=== PATIENT | female | born 1955 | race Caucasian/White ===

== ENCOUNTER 2018-09-22 08:15 | Inpatient (IN) | payer OTHER, SELFPAY ==
[2018-09-08 13:41] VITALS: BMI 34.9
[2018-09-22] VITALS (14 sets, daily range): BP systolic 107–151; BP diastolic 42–85; PULSE 56–69; RESP 11–18; TEMP 36–37.2; O2SAT 95–100; BMI 34.9
--- NOTE | 2018-09-22 | DI.RAD.S_ITS ---
PROCEDURE: XR HIP W PEL IF DONE LT 2V INDICATIONS: POST OP HIP TECHNIQUE: AP pelvis and lateral view of the left hip acquired. COMPARISON: None. FINDINGS: Bones: Patient is status post left hip arthroplasty, with hardware components in expected positions. The hip joint appears congruent. The visualized bony structures appear intact. Soft tissues: Overlying postoperative changes are noted. No suspicious soft tissue densities. IMPRESSION: Post left total hip arthroplasty changes with anatomic left hip alignment. Dictated by: Guillermo Tobar M.D. on 09/22/2018 at 15:06 Approved by: Guillermo Tobar M.D. on 09/22/2018 at 15:06
--- NOTE | 2018-09-22 06:00 | DI.RAD.S_ITS ---
PROCEDURE: XR PELVIS 1-2V INDICATIONS: post op TECHNIQUE: 1 view of the lower pelvis acquired. COMPARISON: None. FINDINGS: Bones: Patient is status post left hip arthroplasty, with hardware components in expected positions. The hip joint appears congruent. The visualized bony structures appear intact. Soft tissues: Overlying postoperative changes are noted. No suspicious soft tissue densities. IMPRESSION: Post left total hip arthroplasty changes with anatomic left hip alignment. Dictated by: Guillermo Tobar M.D. on 09/22/2018 at 13:03 Approved by: Guillermo Tobar M.D. on 09/22/2018 at 13:04
[2018-09-22] MEDS: PREGABALIN 75 MG CAPSULE PO (08:49)
[2018-09-22] MEDS: ACETAMINOPHEN 325 MG TABLET 975 MG PO ×3 (08:49→20:32)
[2018-09-22] MEDS: CELECOXIB 200 MG CAPSULE PO (08:49)
[2018-09-22] MEDS: LACTATED RINGERS 1,000 ML 42 ML IV ×2 (08:51→12:27)
[2018-09-22] MEDS: VANCOMYCIN 1,000 MG/200 ML FROZ.PIGGY 200 MG IV (09:22)
--- NOTE | 2018-09-22 09:41 | PM.PREOP ---
Pre-operative Note Interval Note History & Physical reviewed/Exam performed by Physician: Yes Changes to H&P: No
--- NOTE | 2018-09-22 09:42 | P.OP_ITS ---
Operative Date/Time/Diagnoses Date of procedure: 09/22/18 Time of procedure: 10:42 Pre-op diagnosis: Severe left hip osteoarthritis Post-op diagnosis: same Procedure & Clinicians Procedure: Left total hip arthroplasty Same procedure as scheduled: Yes Indications: The patient has had progressively worsening left hip pain with radiographic changes consistent with arthritis. Non-operative management has failed and the patient has requested total hip replacement. The risks, benefits and alternatives to surgery were discussed with the patient prior to proceeding. Risks discussed included, but were not limited to, failure to relieve pain, leg length discrepancy, dislocation, stiffness, infection, nerve damage, deep venous thrombosis, pulmonary embolism, stroke, coma, heart attack, permanent paralysis and , as well as the potential need for eventual revision of the prosthetic. Surgeon: Yesi Chaney Email Production Consultant: Mimi Neff Anesthesia Type: General and Spinal Operative Notes Findings: Severe left hip osteoarthritis, adequate stability, very soft bone Closure Type: primary Specimen(s): none sent Prosthetic devices, grafts, tissues, transplants, or devices: [employer] R3 52 mm cup, 2 20 mm 6.5 mm acetabular screws, neutral poly liner, 36 x 52, 36+ 4 Oxinium head, size 5 standard offset anthology femoral prosthesis Applied: drain(s) Estimated Blood Loss (mL): 250 Blood products transfused: none Procedure in detail: The patient was seen in the pre-operative area, where the patient identified the left hip as the operative site and this was marked with my initials. The patient received pre-operative antibiotics and was taken to the operating room and placed on the operative table in the right lateral decubitus position after satisfactory anesthesia. A exceptional children teacher out was performed. The left leg was prepared from the ankle to the iliac crest with ChloroPrep in the usual fashion and draped through sterile drapes. The hip was approached through an approximately 20 cm incision centered over the greater trochanter and curving gently posteriorly as it went proximally. This was carried sharply to the fascia arslan, which was divided and retracted with a self retaining retractor. The trochanteric bursa was excised with care being taken to avoid the sciatic nerve, which was identified and protected throughout the case. The short external rotators were incised and the capsulomuscular flap was raised and tagged for later repair. The hip was dislocated, and a femoral neck osteotomy performed approximately 15 mm above the lesser trochanter. Retractors were placed around the femur. The canal was opened with a box cutting osteotome, followed by a T handled reamer and a lateralizing reamer. The chili pepper broach was then used, followed by sequential broaching until there was good stability of the broach in the femur. Retractors were placed to expose the acetabulum. The labrum and central soft tissues were removed. Reaming was performed initially going up in 2 mm increments, then 1 mm increments until good bite was obtained with an odd sized reamer. She had a very soft acetabulum and I did have some slight comminution of the anterior rim. There was also a fairly large cyst in the superior dome of the acetabulum and I used acetabular reaming in some of the bone from the femoral head for bone grafting. The cup 1 mm larger than the last reamer was then inserted using the appropriate anteversion guides. She had very soft bone and a fairly significant cyst in the superior aspect of the acetabulum and I opted to fix the cup with 2 screws. Screws were inserted and there was reasonable bite in both screws. A trial neutral liner was placed. The broach was placed in the canal. A trial head and neck were then placed and the hip relocated and checked for leg length and stability. An intraoperative film confirmed the component position and no evidence of fracture. The patient was stable in the position of sleep, of squatting, and could be put through a range of motion with 45 degrees internal rotation without dislocation. At 90 degrees flexion, internal rotation to 70 was possible before dislocation. This was felt to be satisfactory and the appropriate components were opened, and the trials were removed. The acetabular liner was impacted into position. The final stem was then impacted into the prepared femoral canal. A brief Betadine soak was performed while trialing with head options. The hip was meticulously irrigated with normal saline. Finally the femoral head was impacted onto the stem. The acetabulum was cleared of all material and the hip relocated one final time. The capsulomuscular flap was then repaired to the greater trochanter though an awl hole using the tag sutures. The short external rotators were repaired with a nonabsorbable suture. A deep drain was placed and brought out anteriorly. The fascia arslan was closed with Vicryl. The subcutaneous layer was closed with barbed sutures and SteriStrips. An Aquacel Ag dressing was applied and the patient was taken to recovery having tolerated the procedure well. Complications: none Condition: stable Disposition: Acute Care Plan for aftercare: The patient will be maintained on a standard total hip replacement protocol with weight bearing as tolerated and posterior hip precautions. The patient will receive Aspirin and sequential compression devices for DVT prophylaxis. The patient will be discharged home when safe for the home environment.
--- NOTE | 2018-09-22 09:48 | PC.NURSE ---
Day shift: Pt not on AC unit at this time.
[2018-09-22] MEDS: CEFAZOLIN 2 GM/100 ML FROZ.PIGGY IV ×2 (10:27→17:56)
[2018-09-22] MEDS: TRANEXAMIC ACID 1,000 MG VIAL 1000 MG INJ ×2 (10:45→13:09)
--- NOTE | 2018-09-22 11:10 | SUR.OPER ---
Lateral on padded OR bed. Gel axillary roll. Arms secured on padded armboard with pillow supporting top arm. Padded hip positioner braces x4 - anterior and posterior chest and pelvis. Additional gel pad used anterior pelvis. Gel pad under bottom leg from knee to foot and secured with tape over sheet.
[2018-09-22] MEDS: BUPIVACAINE 0.25% W/ EPI (PF) 10 ML VIAL 60 ML INJ (11:19)
[2018-09-22] MEDS: BUPIVACAINE LIPOSOME 266 MG/20 ML VIAL INJ (11:20)
[2018-09-22] MEDS: POVIDONE-IODINE 15 ML, SODIUM CHLORIDE 0.9% 250 ML TOP (11:21)
[2018-09-22] MEDS: EPINEPHrine 1 MG/ML AMPUL IRR (11:26)
--- NOTE | 2018-09-22 14:39 | PC.NURSE ---
Day shift: Pt on AC unit at approx 1435. Oriented to room and call light. VS WNL. HR 59. Pt is A&Ox3. Aquacel is CDI. Hemavac is patent and depressed. PPP and sensation not returned below the left knee. CMS intact RLE. HFR for now. Bed in low position.
--- NOTE | 2018-09-22 14:43 | SUR.PHASEI ---
1428 A&O, transferred to 220, clothing bag and cane taken to the room. Tolerating ice chips well, denies pain. Hemovac compressed w/red drainage, dressing remains CDI. SCDs on. Continuous pulse ox applied. Stable.
[2018-09-22] MEDS: LACTATED RINGERS 1,000 ML 125 ML IV ×2 (14:52→23:16)
--- NOTE | 2018-09-22 17:18 | PC.NURSE ---
Addendum entered by Susanna Waters R.N. 09/22/18 22:25: Had nausea & lightheadedness when transfered to recliner by Physical Therapist earlier. Had 2 bouts of emesis, 40 ml emesis then larger 300 mls. Zofran SL given at that time. Since then sat up in recliner for 3 hours, denies pain to LLE or further nausea/emesis tonight. At 2100: reporting urge to void & assisted into bathroom with use of walker/gait belt, post-op hip precautions reinforced. She voided 200 ml clear delores urine, then ambulated with assist back to bed. When she sat on bed she started having dry heaves, vomiting 30 ml in emesis bag. IV Reglan given. After 10 minutes she denied further nausea saying I think it is the movement. I observed her LLE to be shaky while sitting at side of bed. Assisted her into bed, 2100 PO meds given along with crackers & fresh ice water. VS are stable tonight, she denies other needs/concerns. Original Note: Post-op notes: Luke awake, Ox3, denies numbness or tingling to extremities. Denies any pain. Good mvmt of LE's, bilateral SCD's are on. Left hip aquacel drsg is CDI, hemovac compressed & active with small amt sero-sang in tubing. Her vitals are stable. Denies nausea, tolerating crackers & water, sitting in bed eating meal. PT in room to work with patient now.
--- NOTE | 2018-09-22 17:40 | PT.IIE ---
Current Diagnoses Unilateral primary osteoarthritis, left hip (09/22/18) Surgery Performed Operation Date: 09/22/18 10:15 Actual Procedures p Total Hip Arthroplasty(Left) - Yesi Chaney MD Surgical History (Last Updated 09/08/18 @ 14:15 by Teresita Cruz, RN) History of carpal tunnel release of both wrists (Acute ~2010) History of tonsillectomy and adenoidectomy (Acute) Hx of appendectomy (Acute ~1990) Hx of bariatric surgery (Acute ~11/2012) Hx of cholecystectomy (Acute ~1992) Status post bilateral cataract extraction (Acute ~2015) Medical History (Last Updated 09/08/18 @ 14:15 by Teresita Cruz RN) Arthritis (Acute) H/O: hysterectomy (Acute ~03/1991) HTN (hypertension) (Acute) Herpes simplex (Acute) Tibia/fibula fracture (Acute ~1994) Lynch teeth removed (Acute ~1978) Physical Therapy Inpatient Evaluation/Re-Eval M1 PT/OT-IP Prior Functional Status Start: 09/22/18 17:37 Freq: NEEDED Status: Active Protocol: Document 09/22/18 17:37 EA (Rec: 09/22/18 17:42 EA [id number]) Medical Review Prior Functional Status Medical History Reviewed Yes Diet/Fluid Consistency Regular Communication Normal Mobility and Gait Indep with no used of straight cane. Activities of Daily Living and IADL's Indep Prior Functional Level (Other details) Work in [employer] with active lifestyle. Social History Household Members none Living Arrangements House Number of Floors (Floors) One Floor Number of Stairs To Enter/Railing? 2 steps to get in with railing Home Environment Tub/Shower Home Equipment Front Wheel Walker Straight Cane Raised Toilet Seat w/Armrests Employment Status Customer Assistance Representative Employed M2 PT-IP Current Condition Start: 09/22/18 17:37 Freq: NEEDED Status: Active Protocol: Document 09/22/18 17:37 EA (Rec: 09/23/18 07:18 EA [id number]) Physical Therapy Current Condition Current Condition Evaluation Date 09/22/18 Treatment Diagnosis s/p L ALTA Onset Date 09/22/18 Precautions Posterior Hip Precautions No Hip Flexion > 90 degrees No Hip Internal Rotation No Hip Adduction Weight Bearing Status Weight Bearing Status Weight Bear as Tolerated M3 PT-IP Subjective Start: 09/22/18 17:37 Freq: NEEDED Status: Active Protocol: Document 09/22/18 17:37 EA (Rec: 09/22/18 17:42 EA [id number]) Subjective Physical Therapy Visit Type Type Initial Evaluation Visit Start Time 17:00 Visit Stop Time 17:40 Total Visit Minutes 40 Physical Therapy Visit Comments Patient Comments Patient agreeable to mobilize and perform PT evaluation. Patient Goals Pt would like to be discharge by tomorrow. Therapy Pain Assessment Pain When Pain Assessed At Rest Pain Present Pain Present Pain Reported Location Left Posterior Hip Intensity 2 Description Acute M4 PT-IP Mobility and Gait Start: 09/22/18 17:37 Freq: NEEDED Status: Active Protocol: Document 09/22/18 17:37 EA (Rec: 09/22/18 17:42 EA [id number]) PT-Bed Mobility Assessment Supine to Sit Supine to Sit Contact Guard Assistance Sit to Supine Sit to Supine Standby Assistance Scooting Scooting to Edge of Bed Standby Assistance PT-Transfer Assessment Sit to and From Stand Sit to and from Stand Standby Assistance Equipment Transfer Assistive Device Front Wheeled Walker Transfers Transfer Destination Bed Chair Transfer Technique stepping Transfer Ability Level of Assist Contact Guard Assistance Gait Assessment Gait Gait Assistance Required: Standby Assistance Assistive Devices Assistive Device Gait Belt Front Wheeled Walker Gait Deviations General Gait Pattern Antalgic Step-to Gait Factors Limiting Gait Function Factors Limiting Gait Function Decreased Activity Tolerance Decreased Strength Limited Range of Motion Pain Poor Balance Comments Gait Comments Requires rest in upright sitting due to nausea. PT-Balance Assessment Sitting Balance and Reactions Static Sitting Balance Ability Good Dynamic Sitting Balance Ability Good Standing Balance and Reactions Static Standing Balance Ability Good Dynamic Standing Balance Ability Fair M5 PT-IP Objective Assessments Start: 09/22/18 17:37 Freq: NEEDED Status: Active Protocol: Document 09/22/18 17:37 EA (Rec: 09/23/18 07:18 EA [id number]) Orientation Orientation/Cognition Level of Alertness Alert Orientation Name Age Year Day of Week Place Situation Language Function Ability No Deficits Noted Safety Awareness Understands Safety Issues Gross Range of Motion Upper Extremity ROM Assessment Within Functional Limits Lower Extremity ROM Assessment Left Impaired Impairments Hip ROM to flexion/IR/ADD are not completely assessed due to hip pre-cautions but at least functional to functional range. Strength Upper Extremity Strength Assessment Within Functional Limits Lower Extremity Strength Assessment Within Functional Limits Hip Not properly assessed due to hip pre-caution but with at least 3/5 Coordination Assessment Gross Coordination Gross Coordination WNL Assessment Finger to Nose Test Normal Performance Pronation/Supination Test Normal Performance Foot Tapping Test Normal Performance Sensation Assessment Sensation Gross Sensation WNL Light Touch Intact Proprioception (Position) Intact M6 PT-IP Treatment Start: 09/22/18 17:37 Freq: NEEDED Status: Active Protocol: Document 09/22/18 17:37 EA (Rec: 09/23/18 07:18 EA [id number]) Physical Therapy Treatment Exercises Exercises Ankle Pumps Gluteal Sets Quad Sets Heel Slides Supine Hip Abduction Education Education Provided Precautions Weight Bearing Status Post-Op Packet Safety M7 PT-IP Assessment and Plan Start: 09/22/18 17:37 Freq: NEEDED Status: Active Protocol: Document 09/22/18 17:37 EA (Rec: 09/22/18 17:42 EA [id number]) PT Summary Assessment and Plan Potential Rehabilitation Potential Good Status of Condition at Evaluation Stable Summary Impairments Pain ROM Strength Balance Bed Mobility Transfers Gait Activity Tolerance Assessment Summary Patient demonstrates decreased tolerance to transfers and ambulation due to pain weakness to left hip. Patient would benefit with assistance in all transfers and mobility for safety at this time. Patient is a good candidate for skilled PT to reach independent mobility prior to discharge to home. Goals Bed Mobility Goal Independent Transfer Goal Independent Front Wheeled Walker Gait Goal Independent Front Wheel Walker Gait Distance 100 ft Other Goals 2 steps with rails Days to Meet Goals 2 Frequency of Treatment Frequency Of Treatment Twice a Day Treatment Plan Physical Therapy Treatment Plan Bed Mobility Training Transfer Training Gait Training Therapeutic Exercise Balance Retraining Post Op Education Discharge Planning Recommendations To Nursing Amount of Assist Needed 1 Person Assist Discharge Recommendations PT Discharge Recommendations Home with Assistance
[2018-09-22] MEDS: ONDANSETRON 4 MG ODT PO (17:57)
[2018-09-22] MEDS: DOCUSATE 100 MG CAPSULE PO (20:33)
[2018-09-22] MEDS: ASPIRIN EC 81 MG TABLET PO (20:33)
[2018-09-22] MEDS: IBUPROFEN 400 MG TABLET 800 MG PO (20:33)
[2018-09-22] MEDS: METOCLOPRAMIDE 10 MG/2 ML INJ IV (21:02)
[2018-09-23] MEDS: CEFAZOLIN 2 GM/100 ML FROZ.PIGGY IV (02:17)
[2018-09-23 04:45] VITALS: BP 132/63; PULSE 69; RESP 18; TEMP 36.8; O2SAT 100
[2018-09-23 05:58] LABS: Hemoglobin 10.3 g/dL (12.0-16.0)
[2018-09-23 08:00] VITALS: BP 139/65; PULSE 65; RESP 18; TEMP 36.6; O2SAT 100
--- NOTE | 2018-09-23 08:26 | PM.DS.1 ---
History of Present Illness Date Patient Seen: 09/23/18 Time Patient Seen: 08:27 Chief complaint: [id number] Narrative: The patient has had progressively worsening left hip pain with radiographic changes consistent with arthritis. Non-operative management has failed and the patient has requested total hip replacement. The risks, benefits and alternatives to surgery were discussed with the patient prior to proceeding. Risks discussed included, but were not limited to, failure to relieve pain, leg length discrepancy, dislocation, stiffness, infection, nerve damage, deep venous thrombosis, pulmonary embolism, stroke, coma, heart attack, permanent paralysis and , as well as the potential need for eventual revision of the prosthetic. Discharge Providers Date of admission: 09/22/18 08:15 Discharge Date: 09/23/18 Primary care physician: BRIANNA Urban Consults: 09/22/18 06:00 Consult to Anesthesiology Routine Comment: Consulting Provider: Anesthesiologist Reason for consultation: Regional block for post operative pain control 09/22/18 14:38 Consult to Discharge Planning Routine Comment: Consult to Physical Therapy Evaluate & Treat Comment: Physician Instructions: post op ALTA protocol Consult to Respiratory Therapy Evaluate & Treat Comment: Physician Instructions: Evaluate and treat Discharge provider: Mimi Neff PA-C Summary Discharge Diagnosis: s/p total hip arthroplasty Hospital Course: After obtaining informed consent patient was brought to the operating room on 09/22/18 for left total hip arthroplasty with no complications. She is progressing well post operatively. She reports minimal pain that has not been requiring medication. She has ambulated about the room to the bathroom multiple times and feels confident. She experienced some post op nausea but has been tolerating mild foods on POD#1. She is voiding independently. She has supply of all medications needed in the post op period at home including pain medications. She has good support system. Status at Discharge Cognitive/behavioral status at discharge: oriented Functional status at discharge: uses cane/walker Overall status at discharge: patient is progressing back to baseline Exam Vital Signs (past 8 hours): - 09/23/18 04:45 Temperature 98.2 F Pulse Rate 69 Respiratory Rate 18 Blood Pressure 132/63 Pulse Oximetry 100 Oxygen Delivery Method Room Air Oxygen Flow Rate 0 Narrative Exam Narrative: Pleasant 63 year old female resting comfortably in bed in no acute distress. Alert and oriented. Dressing in place over left hip is intact with some shadow drainage. Neurovascularly intact in distal extremity. Calves are soft and nontender bilaterally. Objective Labs Result Diagrams: 09/23/18 05:41 Labs: Laboratory Results - last 24 hr 09/23/18 05:41 Hgb 10.3 L Hct 31.0 L Discharge Plan Discharge Plan Patient Disposition: Home Discharge comment: Discharge to home after PT Discharge Med Rec/Prescriptions Prescriptions: New acetaminophen 325 mg Tablet 975 mg PO TID Qty: 60 RF: 0 aspirin 81 mg Tablet,Delayed Release (Dr/Ec) 81 mg PO BID Qty: 60 RF: 0 docusate sodium [DOK] 100 mg Capsule 100 mg PO BID Qty: 60 RF: 0 oxycodone 5 mg Tablet 5 mg PO Q4HR Qty: 1 RF: 0 Continued fluoxetine 40 mg Capsule 40 mg PO DAILY RF: 0 ibuprofen 800 mg Tablet 800 mg PO TID RF: 0 lisinopril 20 mg Tablet 20 mg PO DAILY RF: 0 Follow up/Referrals: Yesi Chaney MD [Physician] - Provider Discharge Instructions Diet: Diet as Tolerated Activity: Weight bear as tolerated. Use walker. Cold/Heat Therapy: Ice packs as needed. Other treatments: Reference [employer] book. Skin/Wound/Dressing Care Dressing: Leave dressing in place until 2 week post op. Monitor for drainage. Visit Report/Discharge Packet Instructions: DI for Hip Replacement Discharge Data Primary Care Provider: Mary Valerio Attending Provider: Yesi Chaney Admit Date/Time: 09/22/18 08:15 Quality VTE Deep Vein Thrombosis/Pulmonary Embolism Present on Admission: No
[2018-09-23] MEDS: ACETAMINOPHEN 325 MG TABLET 975 MG PO (09:46)
[2018-09-23] MEDS: FLUoxetine 20 MG CAPSULE 40 MG PO (09:47)
[2018-09-23] MEDS: ASPIRIN EC 81 MG TABLET PO (09:47)
[2018-09-23] MEDS: DOCUSATE 100 MG CAPSULE PO (09:47)
[2018-09-23] MEDS: LISINOPRIL 20 MG TABLET PO (09:48)
[2018-09-23] MEDS: IBUPROFEN 400 MG TABLET 800 MG PO (09:48)
--- NOTE | 2018-09-23 10:24 | PT.IPTN ---
Current Diagnoses Unilateral primary osteoarthritis, left hip (09/22/18) Surgery Performed Operation Date: 09/22/18 10:15 Actual Procedures p Total Hip Arthroplasty(Left) - Yesi Chaney MD Physical Therapy Treatment Note M2 PT-IP Current Condition Start: 09/22/18 17:37 Freq: NEEDED Status: Active Protocol: Document 09/22/18 17:37 EA (Rec: 09/23/18 07:18 EA [id number]) Physical Therapy Current Condition Current Condition Evaluation Date 09/22/18 Treatment Diagnosis s/p L ALTA Onset Date 09/22/18 Precautions Posterior Hip Precautions No Hip Flexion > 90 degrees No Hip Internal Rotation No Hip Adduction Weight Bearing Status Weight Bearing Status Weight Bear as Tolerated M3 PT-IP Subjective Start: 09/22/18 17:37 Freq: NEEDED Status: Active Protocol: Document 09/23/18 10:07 SA (Rec: 09/23/18 10:24 SA [id number]) Subjective Physical Therapy Visit Type Type Treatment Note Visit Start Time 09:03 Visit Stop Time 09:33 Total Visit Minutes 30 Number of ROTOFORMER BACKTENDER Visits 1 Physical Therapy Visit Comments Patient Comments Pt reports low pain levels and is agreeable to trial of stairs. Patient Goals Pt would like to be discharge by this afternoon. Therapy Pain Assessment Pain When Pain Assessed During Mobility Pain Present Pain Present Pain Reported Location Left Posterior Hip Intensity 2 Description Acute Pain Management Techniques Apply Cold Timing of Activity with Medications M4 PT-IP Mobility and Gait Start: 09/22/18 17:37 Freq: NEEDED Status: Active Protocol: Document 09/23/18 10:07 SA (Rec: 09/23/18 10:24 SA [id number]) PT-Bed Mobility Assessment Supine to Sit Supine to Sit Standby Assistance Bedrails Sit to Supine Sit to Supine Standby Assistance Scooting Scooting to Edge of Bed Standby Assistance Scooting Up and Down in Bed Standby Assistance PT-Transfer Assessment Sit to and From Stand Sit to and from Stand Standby Assistance Equipment Transfer Assistive Device Gait Belt Front Wheeled Walker Orthotic/Prosthetic Devices or Brace: No Transfers Transfer Destination Bed Chair Toilet Transfer Technique Stand Step Pivot Transfer Ability Level of Assist Standby Assistance Comments Mobility Comments Pt progressing well with mobility tasks, tolerating increasing WBing through LLE. Visual and verbal review of post. hip precautions. Gait Assessment Gait Gait Assistance Required: Standby Assistance Contact Guard Assist Distance (Feet) 200 Able to Maintain Weight Bearing Status Yes During Gait Assistive Devices Assistive Device Gait Belt Front Wheeled Walker Orthotic/Prosthetic Devices or Brace: No Gait Deviations General Gait Pattern Antalgic Decreased Stride Length Decreased Feet Clearance Factors Limiting Gait Function Factors Limiting Gait Function Decreased Activity Tolerance Decreased Strength Limited Range of Motion Pain Poor Balance Comments Gait Comments Pt progressing well with gait quality and distance, cues fro decreasing WBing through UEs and upright posture. Pt became light headed towards end of walk and required WC to sit down. BP at this time was 114/ 43, symptoms disapated with seated rest break. Stair Climbing Assessment Evaluation Level of Assist On Stairs Contact Guard Assistance Devices Stair Climbing Assistive Devices Left Railing Right Railing Technique/Endurance Stair Climbing Direction Ascend and Descend Stair Climbing Technique Step to Step Number of Steps Climbed 3 Query Text: Stair Climbing Set # Repetitions (reps) 1 Comments Stair Climbing Comments CGA with stairs and Mod cues for safe technique, pt denied increase in pain with activity . M5 PT-IP Objective Assessments Start: 09/22/18 17:37 Freq: NEEDED Status: Active Protocol: Document 09/22/18 17:37 EA (Rec: 09/23/18 07:18 EA [id number]) Orientation Orientation/Cognition Level of Alertness Alert Orientation Name Age Year Day of Week Place Situation Language Function Ability No Deficits Noted Safety Awareness Understands Safety Issues Gross Range of Motion Upper Extremity ROM Assessment Within Functional Limits Lower Extremity ROM Assessment Left Impaired Impairments Hip ROM to flexion/IR/ADD are not completely assessed due to hip pre-cautions but at least functional to functional range. Strength Upper Extremity Strength Assessment Within Functional Limits Lower Extremity Strength Assessment Within Functional Limits Hip Not properly assessed due to hip pre-caution but with at least 3/5 Coordination Assessment Gross Coordination Gross Coordination WNL Assessment Finger to Nose Test Normal Performance Pronation/Supination Test Normal Performance Foot Tapping Test Normal Performance Sensation Assessment Sensation Gross Sensation WNL Light Touch Intact Proprioception (Position) Intact M6 PT-IP Treatment Start: 09/22/18 17:37 Freq: NEEDED Status: Active Protocol: Document 09/23/18 10:07 SA (Rec: 09/23/18 10:24 SA [id number]) Physical Therapy Treatment Exercises Exercises Ankle Pumps Gluteal Sets Quad Sets Heel Slides Supine Hip Abduction Education Education Provided Precautions Weight Bearing Status Post-Op Packet Safety M7 PT-IP Assessment and Plan Start: 09/22/18 17:37 Freq: NEEDED Status: Active Protocol: Document 09/23/18 10:07 (Rec: 09/23/18 10:24 [id number]) PT Summary Assessment and Plan Potential Rehabilitation Potential Good Status of Condition at Evaluation Stable Summary Assessment Summary Pt progressing well, one incident of feeling light headed with longer walk but resolved quickly with seated rest break. Anticipate d/c home this afternoon. Frequency of Treatment Frequency Of Treatment Twice a Day Treatment Plan Physical Therapy Treatment Plan Bed Mobility Training Transfer Training Gait Training Therapeutic Exercise Balance Retraining Post Op Education Discharge Planning Recommendations To Nursing Amount of Assist Needed 1 Person Assist Discharge Recommendations PT Discharge Recommendations Home with Assistance
--- NOTE | 2018-09-23 10:39 | CM.DANOTE ---
DCP: Case received, EMR reviewed and met with patient. Obtained information from patient. Was able to complete DCP assessment with information available. Patient is a 63 year old female who admitted yesterday morning to the care of the surgical team. PCP: Dr. Valerio. Payer: confirmed: Fredi Mello. Patient came to hospital for surgical procedure. She had L. Total Hip Surgery. She has had history of chronic left hip pain. Met with patient in room. Alert and oriented, pleasant. She resides alone in [place], but has son and [id number] that live a few houses down. She stated, she has planned this all out, her outpatient therapy is set up after her follow up ortho appt, and her family will be helping her out if she needs it. She stated that she lives in a ranch style home with no stairs, and has purchased a walker as well. She is planning on working with physical therapy today. P: DCP to continue to follow closely. She should be able to go home when she is stable, and she has worked with physical therapy team. María Malcolm RN/Coal Inspector
[2018-09-23 12:00] VITALS: BP 127/67; PULSE 69; RESP 18; TEMP 36.6; O2SAT 100
--- NOTE | 2018-09-23 14:22 | PC.NURSE ---
Day shift: Pt left unit at approx 1430 with Daughter to private car. Pt has MD scrips already. Paperwork signed and all questions answered. Pt has all personal belongings. New Aquacel placed per MD.
== END 2018-09-23 14:24 | disposition home or self-care (01) | DRG 470 ==
PROVIDERS: Admitting Provider Orthopaedic Surgery; PCP Nurse Practitioner; Visit Provider Orthopaedic Surgery
PROC: 0SRB0JZ Replacement of Left Hip Joint with Synthetic Substitute, Open Approach (ICD-10-PCS; CPT 27130; principal; 2018-09-22 10:15)
DX: M16.12 Unilateral primary osteoarthritis, left hip (principal); I10 Essential (primary) hypertension
CPT/HCPCS: 36415; 72170; 73502; 85014; 85018; 94762; 97116; 97161; 97530; 97535; C1776; C9290; J0171; J0690; J1100; J2250; J2274; J2405; J2704; J2765; J3010; J3370

== ENCOUNTER 2018-10-09 13:15 | Inpatient (IN) | payer OTHER, SELFPAY ==
[2018-09-22 15:25] VITALS: BMI 34.9
[2018-10-07 13:01] VITALS: BMI 34.9
[2018-10-09] VITALS (10 sets, daily range): BP systolic 117–143; BP diastolic 58–74; PULSE 54–71; RESP 14–18; TEMP 35.9–37.3; O2SAT 95–100; BMI 34.9
--- NOTE | 2018-10-09 | DI.RAD.S_ITS ---
PROCEDURE: XR HIP W PEL IF DONE LT 2V INDICATIONS: left hip orif TECHNIQUE: AP pelvis with lateral view(s) of the left hip(s). COMPARISON: [facility], MAIN, XR HIP W PEL IF DONE LT 2V, 09/22/2018, 14:11. FINDINGS: Bones: Arthroplasty hardware appears intact it is expected alignment. There is also cerclage wire fixation of the greater trochanter Soft tissues: . Skin unique noted. Overlying postsurgical soft tissue changes IMPRESSION: Expected postoperative appearance Dictated by: Shravan Caceres M.D. on 10/10/2018 at 8:31 Approved by: Shravan Caceres M.D. on 10/10/2018 at 8:48
--- NOTE | 2018-10-09 | DI.RAD.S_ITS ---
PROCEDURE: XR HIP LT 1V INDICATIONS: LT FEMUR ORIF TECHNIQUE: 2 views of the hip were acquired. COMPARISON: [facility], CR, XR PELVIS WITH LATERAL HIP LEFT, 10/06/2018, 14:01. [facility], MAIN, XR HIP W PEL IF DONE LT 2V, 10/09/2018, 17:39. [facility], CR, XR HIP W PEL IF DONE LT 2V, 09/22/2018, 14:11. FINDINGS: Spot fluoroscopic intraoperative images demonstrates left hip arthroplasty. There is expected intraoperative alignment. Cerclage wire fixation of the greater trochanter fracture. Dictated by: Shravan Caceres M.D. on 10/09/2018 at 18:04 Approved by: Shravan Caceres M.D. on 10/09/2018 at 18:05
[2018-10-09] MEDS: LACTATED RINGERS 1,000 ML 42 ML IV (14:01)
[2018-10-09] MEDS: VANCOMYCIN 200 ML 200 MG IV (14:05)
--- NOTE | 2018-10-09 14:25 | PM.PREOP ---
Pre-operative Note Interval Note History & Physical reviewed/Exam performed by Physician: Yes Changes to H&P: Yes H&P completed within 30 days and has changed as indicated here:: patient has worsening left hip pain and x ray shows a left greater trochanteric fracture which has displaced some on serial xrays. Needs ORIF, possible revision stem
--- NOTE | 2018-10-09 14:29 | PM.OP.1 ---
Operative Date/Time/Diagnoses Date of procedure: 10/09/18 Time of procedure: 14:57 Pre-op diagnosis: left trochanteric fracture, recent left total hip arthroplasty Post-op diagnosis: same Procedure & Clinicians Procedure: Left hip greater trochanter open reduction internal fixation with a cerclage wire Same procedure as scheduled: Yes Indications: This is a 63-year-old female who has a history of recent left total hip arthroplasty who had known left hip osteoarthritis that that hand had significant collapse of her acetabulum but also markedly softened bone. She has a history of a recent left total hip arthroplasty. She developed worsening left hip pain postoperatively and x-rays showed evidence of a greater trochanter fracture. A CT scan was done which showed that there was a trochanteric fracture but that the crack did not appear to extend into the femoral shaft. This brought the operating room for open reduction internal fixation of her greater trochanter possible revision stem arthroplasty. Surgeon: Yesi Chaney Color Finisher: Danyel Schumacher Anesthesia Type: General and Spinal Operative Notes Findings: Displaced left greater trochanter fracture. Single piece fixed with a cerclage wire with good compression across the fracture site. Prosthetic height acetabulum and femur appeared to be stable. Closure Type: primary Specimen(s): none sent Prosthetic devices, grafts, tissues, transplants, or devices: 2 mm cobalt chrome accord cable, Kinex biological stimulator for bone formation Applied: drain(s) Estimated Blood Loss (mL): 250 Blood products transfused: none Procedure in detail: Patient was brought to the operating room. A time-out was performed. She underwent induction of a spinal and a general anesthesia. She was positioned in the lateral decubitus position and prepped and draped in a standard sterile fashion. Time-out was performed and antibiotics were given. Posterolateral approach was made to the hip dissection was carried out through skin and subcutaneous tissues to the patient's previous incision. Sutures were removed. There is a pretty significant hematoma both in the subcutaneous space as well as deep to the fascia but no clear communication between the deep and more superficial space. Multiple sutures were removed. The fibers of the gluteal tissue were gently spread Gelpi retractors and a Charnley was placed. The trochanteric fracture was noted to be significantly displaced and unstable. Prosthesis was visualized. The fracture or from the trochanter extended from the basically the superior aspect of the shoulder of the prosthesis proximally. There was not a significant amount of uncovered prosthesis. Prosthesis was gently tested it was noted to be stable. Acetabular component appeared to be in a good position. A cobalt chrome cable was meticulously passed deep to the lesser trochanter over the lateral aspect of the femur and then it was meticulously woken around the greater trochanter trochanteric fracture which was then carefully positioned compressed and anatomically aligned. Fracture hematoma was cleaned from the space of the fracture and good reduction was achieved. X-ray was used to confirm that there was acceptable overall reduction. I placed the patient through range of motion and checked the tensioning of the cable as well as the stability of the fracture fragment and was noted to be well reduced and stable. In order to further stimulate healing, Kinex was carefully packed along the fracture site the lateral aspect of the trochanter. Several additional stitches were also placed in the soft tissues in order to further supplement fracture fixation. Final x-rays showed acceptable overall alignment. Single additional capsular stitch was placed. Fascia was closed with interrupted Vicryl over a deep drain. The wound was meticulously irrigated throughout the procedure. Brief Betadine soak was performed. Sent a culture from the deep subcutaneous tissues. The wound was meticulously irrigated with normal saline and the wound was closed with interrupted Vicryl vivi stitches skin unique and a gerson dressing was placed. Patient tolerated the procedure well. Transferred to the recovery room in satisfactory condition. Complications: none Condition: stable Disposition: Acute Care Plan for aftercare: The patient will be maintained on a standard total hip replacement protocol with partial up to 100 lb weight bearing and posterior hip precautions. No active abduction exercises. The patient will receive Aspirin and sequential compression devices for DVT prophylaxis. The patient will be discharged home when safe for the home environment.
[2018-10-09] MEDS: CEFAZOLIN 2 GM/100 ML FROZ.PIGGY IV ×2 (15:06→21:41)
[2018-10-09] MEDS: BUPIVACAINE 0.25% W/ EPI 30 ML VIAL 60 ML INJ (16:16)
[2018-10-09] MEDS: BUPIVACAINE LIPOSOME 266 MG/20 ML VIAL INJ (16:17)
[2018-10-09] MEDS: POVIDONE-IODINE 15 ML, SODIUM CHLORIDE 0.9% 250 ML TOP (16:32)
[2018-10-09] MEDS: TRANEXAMIC ACID 1,000 MG VIAL 1000 MG IV (16:36)
--- NOTE | 2018-10-09 17:36 | SUR.OPER ---
Following procedure, it was noted that patient had superficial abrasion on anterior right groin approximately 2 inches in length.
[2018-10-09] MEDS: LACTATED RINGERS 1,000 ML 125 ML IV (18:49)
--- NOTE | 2018-10-09 19:20 | PC.NURSE ---
Addendum entered by Huyen Mae R.N. 10/09/18 21:22: Pt resting at intervals this evening. Assisted to BSC, voided QS. MEAGHAN dsg CDI. Hemavac intact/patent (100cc). IVF continues as per orders. Stable post op course Call light w/in reach, bed alarm on for pt safety. Continue w/ plan of care. Original Note: Pt arrived to RM 209 @ 1815. Alert/oriented. Lungs clear, SpO2 100% RA. Denies discomfort at this time. IV LR @ 125cc/hr infusing into the RAC via pump as per orders. MEAGHAN dsg to left hip CDI, Hemavac intact/patent. Pt oriented to room ans call system. Call light w/in reach, bed alarm on for pt safety. Stable post op course.
[2018-10-09] MEDS: ACETAMINOPHEN 325 MG TABLET 975 MG PO (20:32)
[2018-10-09] MEDS: ASPIRIN EC 81 MG TABLET PO (20:33)
[2018-10-09] MEDS: OXYCODONE IR 5 MG TABLET 10 MG PO (20:37)
[2018-10-10] VITALS: BP 120/48; PULSE 63; RESP 16; TEMP 36.9; O2SAT 99
[2018-10-10] MEDS: OXYCODONE IR 5 MG TABLET 10 MG PO ×4 (00:10→13:38)
[2018-10-10] MEDS: LACTATED RINGERS 1,000 ML 125 ML IV (03:22)
[2018-10-10] MEDS: CEFAZOLIN 2 GM/100 ML FROZ.PIGGY IV (06:14)
[2018-10-10 06:27] VITALS: BP 112/71; PULSE 67; RESP 16; TEMP 36.9; O2SAT 100
[2018-10-10 06:45] LABS: Hematocrit 26.8 % (36-46); Hemoglobin 8.9 g/dL (12.0-16.0)
--- NOTE | 2018-10-10 08:12 | PM.DS.1 ---
History of Present Illness Date Patient Seen: 10/10/18 Time Patient Seen: 08:12 Chief complaint: [id number] Narrative: See pre operative HPI. Discharge Providers Date of admission: 10/09/18 13:15 Discharge Date: 10/10/18 Primary care physician: BRIANNA Urban Consults: 10/09/18 15:21 Consult to Anesthesiology Routine Comment: Consulting Provider: Anesthesiologist Reason for consultation: Post operative pain managment Has provider been notified: Yes 10/09/18 18:40 Consult to Discharge Planning Routine Comment: Consult to Physical Therapy Evaluate & Treat Comment: NO HIP ABDUCTION EXERCISES Physician Instructions: post op ALTA protocol Consult to Respiratory Therapy Evaluate & Treat Comment: Physician Instructions: Evaluate and treat Discharge provider: Mimi Neff PA-C Summary Discharge Diagnosis: s/p ORIF of left hip Hospital Course: This is a 63-year-old female who has a history of recent left total hip arthroplasty who had known left hip osteoarthritis that that hand had significant collapse of her acetabulum but also markedly softened bone. She has a history of a recent left total hip arthroplasty. She developed worsening left hip pain postoperatively and x-rays showed evidence of a greater trochanter fracture. A CT scan was done which showed that there was a trochanteric fracture but that the crack did not appear to extend into the femoral shaft. She was brought to the operating room for open reduction internal fixation of her greater trochanter. After being brought to the acute care unit she has been progressing well. Pain has been well controlled. She has mobilized for short periods and will be discharged today pending working with physical therapy. She has a good support system at home. Medications were recently refilled in the office so she has a good supply at home. She is to continue Vitamin C and iron for post operative anemia. Status at Discharge Cognitive/behavioral status at discharge: oriented Functional status at discharge: uses cane/walker Overall status at discharge: patient is progressing back to baseline Exam Vital Signs (past 8 hours): - 10/10/18 06:27 Temperature 98.5 F Pulse Rate 67 Respiratory Rate 16 Blood Pressure 112/71 Pulse Oximetry 100 Oxygen Delivery Method Room Air Narrative Exam Narrative: Pleasant 63 year old female resting comfortably in bed. No acute distress. Dressing in place over left hip is clean, dry and intact. Hemovac in place. Neurovascularly intact in distal extremities with soft, compressible calves. Objective Labs Result Diagrams: 10/10/18 06:24 Labs: Laboratory Results - last 24 hr 10/10/18 06:24 Hgb 8.9 L Hct 26.8 L Discharge Plan Discharge Plan Patient Disposition: Home Discharge comment: Discharge to home after PT Discharge Med Rec/Prescriptions Prescriptions: New ascorbic acid (vitamin C) [Vitamin C] 500 mg Tablet 500 mg PO DAILY Qty: 30 RF: 0 ferrous gluconate 324 mg (38 mg iron) Tablet 324 mg PO BID Qty: 30 RF: 0 Continued fluoxetine 40 mg Capsule 40 mg PO DAILY RF: 0 ibuprofen 800 mg Tablet 800 mg PO TID RF: 0 lisinopril 20 mg Tablet 20 mg PO DAILY RF: 0 acetaminophen 325 mg Tablet 975 mg PO TID Qty: 60 RF: 0 aspirin 81 mg Tablet,Delayed Release (Dr/Ec) 81 mg PO BID Qty: 60 RF: 0 docusate sodium [DOK] 100 mg Capsule 100 mg PO BID Qty: 60 RF: 0 oxycodone 5 mg Tablet 5 mg PO Q4HR Qty: 1 RF: 0 Follow up/Referrals: Mary Valerio ARNP [Primary Care Provider] - Yesi Chaney MD [Physician] - Provider Discharge Instructions Diet: Diet as Tolerated Activity: Partial weight bearing (up to 100lbs) on the left side. Posterior hip precautions. Cold/Heat Therapy: Ice packs as needed Skin/Wound/Dressing Care Report to your healthcare provider any signs of infection, such as:: chills, fever, increased pain, unusual drainage and unusual redness Dressing: Leave dressing in place, it will be removed at two week post op visit. Visit Report/Discharge Packet Instructions: DI for Hip Replacement Discharge Data Primary Care Provider: Mary Valerio Attending Provider: Yesi Chaney Admit Date/Time: 10/09/18 13:15 Quality VTE Deep Vein Thrombosis/Pulmonary Embolism Present on Admission: No
[2018-10-10] MEDS: LISINOPRIL 20 MG TABLET PO (09:11)
[2018-10-10] MEDS: DOCUSATE 100 MG CAPSULE PO (09:11)
[2018-10-10] MEDS: ASPIRIN EC 81 MG TABLET PO (09:11)
[2018-10-10] MEDS: ACETAMINOPHEN 325 MG TABLET 975 MG PO (09:12)
[2018-10-10] MEDS: ASCORBIC ACID 500 MG TABLET PO (09:12)
[2018-10-10] MEDS: FERROUS GLUCONATE 324 MG TABLET PO (09:12)
[2018-10-10] MEDS: FLUoxetine 20 MG CAPSULE 40 MG PO (09:12)
--- NOTE | 2018-10-10 09:12 | PT.IIE ---
Current Diagnoses Unilateral primary osteoarthritis, left hip (10/09/18) Unspecified trochanteric fracture of left femur, subsequent encounter for closed fracture with routine healing (10/09/18) Surgery Performed Operation Date: 10/09/18 15:15 Actual Procedures p ORIF Femur trochanter cerclage wiring(Left) - Yesi Chaney MD Surgical History (Last Updated 09/08/18 @ 14:15 by Teresita Cruz, RN) History of carpal tunnel release of both wrists (Acute ~2010) History of tonsillectomy and adenoidectomy (Acute) Hx of appendectomy (Acute ~1990) Hx of bariatric surgery (Acute ~11/2012) Hx of cholecystectomy (Acute ~1992) Status post bilateral cataract extraction (Acute ~2015) Medical History (Last Updated 09/08/18 @ 14:15 by Teresita Cruz RN) Arthritis (Acute) H/O: hysterectomy (Acute ~03/1991) HTN (hypertension) (Acute) Herpes simplex (Acute) Tibia/fibula fracture (Acute ~1994) [place] teeth removed (Acute ~1978) Physical Therapy Inpatient Evaluation/Re-Eval M1 PT/OT-IP Prior Functional Status Start: 10/10/18 12:13 Freq: NEEDED Status: Active Protocol: Document 10/10/18 09:12 AB (Rec: 10/10/18 12:31 AB [email or web address]) Medical Review Prior Functional Status Medical History Reviewed Yes Communication able to make needs known Mobility and Gait pt stated that she is modified independent with all mobilities and ambulation using FWW since first surgery 09/22/18 for L ALTA. Social History Household Members none Living Arrangements House Number of Floors (Floors) One Floor Number of Stairs To Enter/Railing? 2 steps to enter with bilateral rails Home Environment High Toilet Tub/Shower Home Equipment Front Wheel Walker Four Wheel Walker Straight Cane Crutches Tub Transfer Quirk Sander Held Shower Improvement Advisor Lift Recliner Grab Bars In Shower Additional Social History Comment pt stated that her daughter lives 4 doors down her house. pt plans to initially stay at her daughter's house initially and then to her own home. pt sleeps a a life recliner M2 PT-IP Current Condition Start: 10/10/18 12:13 Freq: NEEDED Status: Active Protocol: Document 10/10/18 09:12 AB (Rec: 10/10/18 12:31 AB [email or web address]) Physical Therapy Current Condition Current Condition Evaluation Date 10/10/18 Treatment Diagnosis L trochanteric fx s/p ORIF with recent ALTA; difficulty in walking Onset Date 10/09/18 Precautions Posterior Hip Precautions No Hip Flexion > 90 degrees No Hip Internal Rotation No Hip Adduction Other Precautions no active abduction exercises Weight Bearing Status Weight Bearing Status Partial Weight Bearing Allowed Weight Bearing Amount (enter % LLE PWB up to 100 # or #) (%) M3 PT-IP Subjective Start: 10/10/18 12:13 Freq: NEEDED Status: Active Protocol: Document 10/10/18 09:12 AB (Rec: 10/10/18 12:31 AB [email or web address]) Subjective Physical Therapy Visit Type Type Initial Evaluation Visit Start Time 09:12 Visit Stop Time 10:10 Total Visit Minutes 58 Number of REBAR BENDER Visits 0 Physical Therapy Visit Comments Patient Comments pt agreeable to do PT Therapy Pain Assessment Pain When Pain Assessed At Rest Pain Present Pain Present Pain Reported Location Left Posterior Hip Intensity 4 Scale Used Numeric (1 - 10) Pain Management Techniques Apply Cold Re-positioning Timing of Activity with Medications M4 PT-IP Mobility and Gait Start: 10/10/18 12:13 Freq: NEEDED Status: Active Protocol: Document 10/10/18 09:12 AB (Rec: 10/10/18 12:31 AB [email or web address]) PT-Bed Mobility Assessment Supine to Sit Supine to Sit Standby Assistance Sit to Supine Sit to Supine Standby Assistance Scooting Scooting to Edge of Bed Standby Assistance PT-Transfer Assessment Sit to and From Stand Sit to and from Stand Standby Assistance 1 Person Assistance Use of Upper Extremities Equipment Transfer Assistive Device Gait Belt Front Wheeled Walker Orthotic/Prosthetic Devices or Brace: No Transfers Transfer Destination Chair Transfer Technique Stand Step Pivot Transfer Ability Level of Assist Standby Assistance 1 Person Assistance Use of Upper Extremities Comments Mobility Comments pt educated on how to maintain PWB up to 100# on LLE and pt able to follow. weighing scale positioned under LLE and pt is putting only ~ 50 lbs max on LLE. Gait Assessment Gait Gait Assistance Required: Standby Assistance Distance (Feet) 150 Able to Maintain Weight Bearing Status Yes During Gait Assistive Devices Assistive Device Gait Belt Front Wheeled Walker Orthotic/Prosthetic Devices or Brace: No Gait Deviations General Gait Pattern Antalgic Decreased Stride Length Decreased Feet Clearance Factors Limiting Gait Function Factors Limiting Gait Function Decreased Activity Tolerance Decreased Strength Limited Range of Motion Pain Poor Balance Poor Safety Awareness Comments Gait Comments pt able to ambulate using FWW ~ 150 ft SBA and cues. Stair Climbing Assessment Evaluation Level of Assist On Stairs Contact Guard Assistance Minimal Assistance Devices Stair Climbing Assistive Devices Straight Cane Front Wheel Walker Left Railing Right Railing Technique/Endurance Stair Climbing Direction Ascend and Descend Stair Climbing Technique Step to Step Number of Steps Climbed 3 Query Text: Stair Climbing Set # Repetitions (reps) 4 Comments Stair Climbing Comments attempted up/down stairs using bilateral rails but pt unable to maintain 100# weight bearing restriction on LLE when ascending steps requiring min to mod A and max cues. completed with use of SPC min to mod A and cues and one rail and pt still unable to maintain weight bearing restriction. completed up/ down steps backwards using FWW and bilateral rails and pt able to maintain weight bearing restriction requiring CGA and cues. max weight of ~ 70# in ascending on only 40# in descending steps. PT-Balance Assessment Sitting Balance and Reactions Static Sitting Balance Ability Good Dynamic Sitting Balance Ability Good Standing Balance and Reactions Static Standing Balance Ability Fair Dynamic Standing Balance Ability Fair Device Used FWW M5 PT-IP Objective Assessments Start: 10/10/18 12:13 Freq: NEEDED Status: Active Protocol: Document 10/10/18 09:12 AB (Rec: 10/10/18 12:31 [email or web address]) Orientation Orientation/Cognition Level of Alertness Alert Orientation Name Place Situation Safety Awareness Decreased Safety Awareness Memory Description Short Term Impaired Gross Range of Motion Lower Extremity ROM Assessment Within Functional Limits Strength Lower Extremity Strength Assessment Left Impaired Knee 4-/5 Coordination Assessment Gross Coordination Gross Coordination WNL Sensation Assessment Sensation Gross Sensation WNL Muscle Tone Muscle Tone WNL Yes M6 PT-IP Treatment Start: 10/10/18 12:13 Freq: NEEDED Status: Active Protocol: Document 10/10/18 09:12 AB (Rec: 10/10/18 12:31 [email or web address]) Physical Therapy Treatment Exercises Exercises Heel Slides Education Education Provided Precautions Weight Bearing Status Post-Op Packet Safety Other Treatments Other Treatment Performed reviewed posterior hip precautions, weight bearing precautions and no active hip abduction precaution with pt. pt with difficulty recalling and needs cues. M7 PT-IP Assessment and Plan Start: 10/10/18 12:13 Freq: NEEDED Status: Active Protocol: Document 10/10/18 09:12 AB (Rec: 10/10/18 12:31 AB [email or web address]) PT Summary Assessment and Plan Potential Rehabilitation Potential Good Status of Condition at Evaluation Stable Summary Impairments Pain ROM Strength Balance Coordination Sensation Tone Cognition Bed Mobility Transfers Gait Activity Tolerance Assessment Summary pt requiring SBA to CGA with mobility. pt plans to go home to her daughter's house initially before she goes to her own home. pt may go home when medically stable. Goals Bed Mobility Goal Independent Transfer Goal Independent Front Wheeled Walker Gait Goal Independent Front Wheel Walker Gait Distance 200 Other Goals up/down 2 steps using FWW/ bilteral rails SBA Days to Meet Goals 5 Frequency of Treatment Frequency Of Treatment Twice a Day Treatment Plan Physical Therapy Treatment Plan Bed Mobility Training Transfer Training Gait Training Therapeutic Exercise Balance Retraining Post Op Education Discharge Planning Hot or Cold Pack Neuromuscular Re-ed Coordination Retraining Manual Therapy Recommendations To Nursing Amount of Assist Needed 1 Person Assist Discharge Recommendations PT Discharge Recommendations Home with Assistance Outpatient PT
[2018-10-10 09:30] VITALS: BP 134/64; PULSE 78; RESP 16; TEMP 36.8
--- NOTE | 2018-10-10 14:45 | PC.NURSE ---
Day shift: Pt left unit at approx 1430 in WC to private car driven by family member w/ [employer]. Paperwork signed and all questions answered. Pt has new MD script for more oxycodone. Pt has all personal belongings.
== END 2018-10-10 14:47 | disposition home or self-care (01) | DRG 481 ==
PROVIDERS: Admitting Provider Orthopaedic Surgery; PCP Nurse Practitioner; Visit Provider Orthopaedic Surgery
PROC: 0SRB0JZ Replacement of Left Hip Joint with Synthetic Substitute, Open Approach (ICD-10-PCS; CPT 27130; principal; 2018-10-09 15:15)
DX: M80.052A Age-related osteoporosis with current pathological fracture, left femur, initial encounter for fracture (principal); M97.02XA Periprosthetic fracture around internal prosthetic left hip joint, initial encounter; D62 Acute posthemorrhagic anemia; Z96.652 Presence of left artificial knee joint
CPT/HCPCS: 36415; 73501; 73502; 76000; 85014; 85018; 87070; 87075; 87205; 97116; 97161; 97530; C1776; C9290; J0690; J1100; J2250; J2274; J2405; J2704; J3010